=== PATIENT | female | born 1980 | race Caucasian/White ===

== ENCOUNTER → 2017-05-19 | Outpatient (CLI) | payer BC ==
[2005-04-12 11:32] VITALS: TEMP 97
== END ==
LOC: COL.RAD 07:24
DX: G50.0 Trigeminal neuralgia (principal)
CPT/HCPCS: A9585

== ENCOUNTER → 2018-02-28 | Outpatient (CLI) | payer BC ==
[2005-04-12 11:32] VITALS: TEMP 97
== END ==
LOC: ZCOL.LAB 14:25
DX: J31.2 Chronic pharyngitis (principal)